=== PATIENT | male | born 1970 | race Caucasian/White ===

== ENCOUNTER 2024-07-14 05:18 | Emergency (ER) | payer SELFPAY ==
[2024-07-14 05:25] VITALS: BP 191/104; PULSE 106; RESP 20; TEMP 36.9; O2SAT 96; BMI 32.7
[2024-07-14 05:32] VITALS: BP 191/104; PULSE 106; RESP 20; O2SAT 96
--- NOTE | 2024-07-14 05:42 | CTR_ITS ---
PROCEDURE INFORMATION: Exam: CT Abdomen And Pelvis With Contrast Exam date and time: 07/14/2024 6:00 AM Age: 54 years old Clinical indication: Localized; Left lower quadrant (llq); Left sided abdominal pain; Additional info: Abd pain TECHNIQUE: Imaging protocol: Computed tomography of the abdomen and pelvis with contrast. Radiation optimization: All CT scans at this facility use at least one of these dose optimization techniques: automated exposure control; mA and/or kV adjustment per patient size (includes targeted exams where dose is matched to clinical indication); or iterative reconstruction. Contrast material: OMNI 350; Contrast volume: 100 ml; Contrast route: INTRAVENOUS (IV); COMPARISON: No relevant prior studies available. RADIATION DOSE METRICS: Total DLP (mGy-cm): 717.8 FINDINGS: Lungs: The lung bases are clear. Heart: Heart is normal in size. There is extensive calcified coronary artery disease. No pericardial effusion. Liver: Hepatic steatosis. The liver is enlarged and measures about 19.4 cm in craniocaudal dimension. No focal liver lesion is identified. Gallbladder and biliary ducts: The gallbladder is unremarkable with no calcified stones visualized and no strandy inflammatory changes surrounding the gallbladder. Pancreas: The pancreas is normal in appearance. No evidence of pancreatic ductal dilatation. Spleen: The spleen is normal in appearance. Adrenal glands: The adrenal glands are normal in appearance. Kidneys and ureters: There is a horseshoe kidney. No evidence of hydronephrosis on either side. There are multiple low-density lesions throughout both renal moieties representing small simple cysts. The largest is in the upper pole on the right measuring about 1.5 cm. No nephroureteral calculi appreciated. Stomach and bowel: The small bowel loops are not thickened and are nondilated. There is colonic diverticulosis but no evidence of diverticulitis. Appendix: The appendix is normal in appearance. No evidence of appendicitis. Intraperitoneal space: Unremarkable. No free air. No significant fluid collection. Vasculature: Unremarkable. No abdominal aortic aneurysm. Lymph nodes: Unremarkable. No enlarged lymph nodes. Urinary bladder: The urinary bladder is normal in appearance. Reproductive: Unremarkable as visualized. Bones/joints: There are multilevel chronic degenerative changes throughout the visualized spine and both hips. No acute osseous abnormality identified. Soft tissues: Small fat containing periumbilical hernia. CT/CT abdomen pelvis w con* [id number]: 1. No CT evidence of acute intra-abdominal pathology. 2. Horseshoe kidney with multiple simple cysts but no evidence of hydronephrosis or nephroureteral calculi. 3. Colonic diverticulosis but no evidence of diverticulitis. 4. Hepatic steatosis and mild hepatomegaly. 5. Extensive calcified coronary artery disease. COMMENTS: Consistent with the [employer]'s Incidental Findings Committee white paper (J Am [employer]iol 2018): Any incidental renal lesion less than 1 cm or classified as too small to characterize, or any incidental cystic renal lesion characterized as simple-appearing, is likely benign. No follow-up imaging is recommended for these lesions per consensus recommendations based on imaging criteria.
--- NOTE | 2024-07-14 05:44 | ED_ITS ---
HPI - Abdominal Pain 2 General: Chief Complaint: Abdominal Pain Stated Complaint: ABD Pain Time Seen by Provider: 07/14/24 05:42 Source: patient Mode of arrival: ambulatory Limitations: no limitations History of Present Illness: 54-year-old male states been having left -sided lower abdominal pain over the last week. He states that he is been having constipation he has not had a bowel movement in over 5 days states pain sharp in nature rates it a 6 out of 10 denies any vomiting denies any fever. Associated Symptoms: Denies chills, diarrhea, dysuria, fever(s), nausea and vomiting Related Data Allergies Allergy/AdvReac Type Severity Reaction Status Date / Time No Known Allergies Allergy Verified 07/14/24 05:32 Review of Systems 2 Const: Denies: fever(s), chills, body aches or change in appetite ENMT: Denies: throat pain or dental pain Card: Denies: chest pain Resp: Denies: dyspnea GI: Reports: abdominal pain; Denies: nausea, vomiting or diarrhea : Denies: dysuria Musc: Denies: neck pain or back pain Skin/Breast: Denies: rash Neuro: Denies: headache(s) Physical Exam 2 Const: COMMON NORMALS: no acute distress, patient oriented x3 and healthy appearing HENMT: COMMON NORMALS: normocephalic and atraumatic HEAD & SCALP: n ormocephalic and atraumatic Eye: COMMON NORMALS: conjunctivae normal CONJUNCTIVA: Yes conjunctivae normal Neck/C-Spine: COMMON NORMALS: full ROM and supple Chest: COMMONS NORMALS: normal inspection of the chest Resp: COMMON NORMALS: normal respiratory effort Cardio: COMMON NORMALS: regular rate RATE: regular rate GI: COMMON NORMALS: Normal to inspection, nondistended, normoactive bowel sounds present, Soft to palpation, non-tender and no masses PALPATION: Yes Soft to palpation Extremity: COMMON NORMALS: normal to inspection and full ROM Neuro: COMMON NORMALS: patient oriented x3, moves all extremities and no focal motor deficits Psych: COMMON NORMALS: mental status grossly normal, Normal thought process present and cooperative THOUGHT PROCESS: Normal thought process present Skin: COMMON NORMALS: no rashes or lesions noted and no wounds GENERAL SKIN EXAM: no rashes or lesions noted Course 2 Vital Signs: Vital signs: Vital Signs Temperature 98.5 F 07/14/24 05:25 Pulse Rate 104 H 07/14/24 06:02 Respiratory Rate 20 H 07/14/24 05:32 Blood Pressure 165/101 07/14/24 06:02 Pulse Oximetry 98 07/14/24 06:02 Oxygen Delivery Me thod Room Air 07/14/24 06:02 MDM - Abdominal Pain Medical Decision Making Patient presents here with abdominal pain CT scan blood work here are normal he is well-appearing here he stable for discharge follow-up PCP return if worsening. Medical Records I reviewed the patient's medical records. Lab Data I reviewed the patient's lab results. 07/14/24 05:38 07/14/24 05:38 Labs/Radiology: Radiology Impressions Abdomen/Pelvis CT 07/14/24 05:42 IMPRESSION: 1. No CT evidence of acute intra-abdominal pathology. 2. Horseshoe kidney with multiple simple cysts but no evidence of hydronephrosis or nephroureteral calculi. 3. Colonic diverticulosis but no evidence of diverticulitis. 4. Hepatic steatosis and mild hepatomegaly. 5. Extensive calcified coronary artery disease. COMMENTS: Consistent with the [employer]'s Incidental Findings Committee white paper (J Am [employer]iol 2018): Any incidental renal lesion less than 1 cm or classified as too small to characterize, or any incidental cystic renal lesion characterized as simple-appearing, is likely benign. No follow-up imaging is recommended for these lesions per consensus recommendations based on imaging criteria. Laboratory Results WBC 7.83 10^3/uL (3.29-11.43) 07/14/24 05:38 RBC 4.42 10^6/uL (3.85-5.65) 07/14/24 05:38 Hgb 8.30 g/dL (11.27-16.99) L 07/14/24 05:38 Hct 32.2 % (37-53) L 07/14/24 05:38 MCV 72.9 fl (82-101) L 07/14/24 05:38 MCH 18.8 pg (27-33) L 07/14/24 05:38 MCHC 25.8 g/dL (30-55) L 07/14/24 05:38 RDW 18.6 % (12.1-15.1) H 07/14/24 05:38 Plt Count 430 10^3/cmm (157-399) H 07/14/24 05:38 MPV 9.6 fL (7.4-10.4) 07/14/24 05:38 Neut % (Auto) 56.2 % 07/14/24 05:38 Lymph % (Auto) 26.8 % 07/14/24 05:38 Louisa % (Auto) 9.6 % 07/14/24 05:38 Eos % (Auto) 6.1 % 07/14/24 05:38 Baso % (Auto) 1.0 % 07/14/24 05:38 Neut # (Auto) 4.40 10^3/uL (1.8-7.7) 07/14/24 05:38 Lymph # (Auto) 2.1 10^3/uL (0.8-4.8) 07/14/24 05:38 Louisa # (Auto) 0.8 10^3/uL (0.2-0.9) 07/14/24 05:38 Eos # (Auto) 0.5 10^3/uL (0.0-0.8) 07/14/24 05:38 Baso # (Auto) 0.1 10^3/uL (0.0-0.1) 07/14/24 05:38 Nucleated RBC % (auto) 0 % 07/14/24 05:38 Nucleated RBCs # 0.0 /100WBC 07/14/24 05:38 Sodium 140 mmol/L (136-145) 07/14/24 05:38 Potassium 3.5 mmol/L (3.5-5.1) 07/14/24 05:38 Chloride 103 mmol/L (98-107) 07/14/24 05:38 Carbon Dioxide 24 mmol/L (22-29) 07/14/24 05:38 Anion Gap 16.5 (5-19) 07/14/24 05:38 BUN 7 mg/dL (6-20) 07/14/24 05:38 Creatinine 1.0 mg/dL (0.7-1.2) 07/14/24 05:38 GFR Calculation 77.6 mL/min (90-130) L 07/14/24 05:38 Glucose 126 mg/dL (65-115) H 07/14/24 05:38 Calculated Osmolality 290 mOsm/kg (285-295) 07/14/24 05:38 Calcium 8.6 mg/dL (8.5-10.5) 07/14/24 05:38 Total Bilirubin 0.2 mg/dL (0.15-1.2) 07/14/24 05:38 AST 20 U/L (0-40) 07/14/24 05:38 ALT 16 U/L (0-41) 07/14/24 05:38 Alkaline Phosphatase 17 U/L (40-130) L 07/14/24 05:38 Total Protein 7.4 g/dL (6.6-8.7) 07/14/24 05:38 Albumin 4.3 g/dL (3.5-5.2) 07/14/24 05:38 Globulin 3.1 g/dL (1.3-4.6) 07/14/24 05:38 Lipase 50 U/L (13-60) 07/14/24 05:38 Urine Color Yellow (Yellow) 07/14/24 05:35 Urine Appearance Clear (CLEAR) 07/14/24 05:35 Urine pH 7.5 (5-7) 07/14/24 05:35 Ur Specific [place] 1.004 (1.005-1.030) L 07/14/24 05:35 Urine Protein Negative (Negative) 07/14/24 05:35 Urine Glucose (UA) Negative (Normal) 07/14/24 05:35 Urine Ketones Negative (Negative) 07/14/24 05:35 Urine Blood Negative (Negative) 07/14/24 05:35 Urine Nitrate Negative (Negative) 07/14/24 05:35 Urine Bilirubin Negative (Negative) 07/14/24 05:35 Urine Urobilinogen 1.0 mg/dL (Negative) 07/14/24 05:35 Ur Leukocyte Esterase Negative (Negative) 07/14/24 05:35 Urine RBC 0-2 /hpf (0-2) 07/14/24 05:35 Urine WBC 0-5 /hpf (0-5) 07/14/24 05:35 Ur Squamous Epith Cells 0-5 /hpf (0-5) 07/14/24 05:35 Amorphous Sediment Not Reportable 07/14/24 05:35 Urine Bacteria None seen /hpf (NONE) 07/14/24 05:35 Hyaline Casts 0-4 /lpf H 07/14/24 05:35 All radiology interpretation(s) finalized by discharge Discharge Plan Discharge Patient Disposition: Home Clinical Impression: Abdominal pain Condition: Stable Discharge Orders: Discharge ED (Routine); Ordered 07/14/24 Ordered By: Gladis Valladares Discharge Diet: Advance as tolerated Discharge Activity: Resume usual activity Patient Instructions: Abdominal Pain (ED) Print Language: Serbian Coding Level of Care Code ED Loan Documents Closer for Ramin Rios
[2024-07-14] MEDS: lactulose oral liq 20 gm/30 mL UDC 30 GM PO (05:47)
[2024-07-14 05:50] LABS: Basophils # 0.1 10^3/uL (0.0-0.1); Eosinophils # 0.5 10^3/uL (0.0-0.8); Eosinophils % 6.1 %; Hematocrit 32.2 % (37-53); Lymphocytes # 2.1 10^3/uL (0.8-4.8); Lymphocytes % 26.8 %; Mean Corpuscular HGB Conc 25.8 g/dL (30-55); Mean Corpuscular Hemoglobin 18.8 pg (27-33); Mean Corpuscular Volume 72.9 fl (82-101); Mean Platelet Volume 9.6 fL (7.4-10.4); Monocytes # 0.8 10^3/uL (0.2-0.9); Monocytes % 9.6 %; Neutrophils % 56.2 %; Nucleated Red Blood Cells % 0 %; Platelet Count 430 10^3/cmm (157-399); Red Blood Count 4.42 10^6/uL (3.85-5.65); Red Cell Distribution Width 18.6 % (12.1-15.1); White Blood Count 7.83 10^3/uL (3.29-11.43)
[2024-07-14 05:56] LABS: Bilirubin Urine Negative (Negative); Blood Urine Negative (Negative); Glucose Urine UA Negative (Normal); Ketones Urine Negative (Negative); Leukocyte Esterase Urine Negative (Negative); Nitrate Urine Negative (Negative); Protein Urine Negative (Negative); Specific Gravity, Urine 1.004 (1.005-1.030); Urine Appearance Clear (CLEAR); Urine Color Yellow (Yellow); pH Urine 7.5 (5-7)
[2024-07-14 06:01] LABS: Add Urine Microscopic? YES; Bacteria Urine None Seen /hpf; Hyaline Casts Urine 0-4 /lpf; RBC Urine 0-2 /hpf (0-2); Squamous Epithelial Cell Urine 0-5 /hpf (0-5); WBC Urine 0-5 /hpf (0-5)
[2024-07-14 06:02] VITALS: BP 165/101; PULSE 104; O2SAT 98
[2024-07-14 06:03] LABS: Alanine Aminotransferase 16 U/L (0-41); Albumin Level 4.3 g/dL (3.5-5.2); Alkaline Phosphatase 17 U/L (40-130); Anion Gap 16.5 (5-19); Aspartate Amino Transferase 20 U/L (0-40); Blood Urea Nitrogen 7 mg/dL (6-20); Calcium 8.6 mg/dL (8.5-10.5); Carbon Dioxide 24 mmol/L (22-29); Chloride 103 mmol/L (98-107); Globulin 3.1 g/dL (1.3-4.6); Glomerular Filtration Rate 77.6 mL/min (90-130); Glucose 126 mg/dL (65-115); Lipase 50 U/L (13-60); Osmolality Calculated 290 mOsm/kg (285-295); Potassium 3.5 mmol/L (3.5-5.1); Sodium 140 mmol/L (136-145); Total Bilirubin 0.2 mg/dL (0.15-1.2); Total Protein 7.4 g/dL (6.6-8.7)
[2024-07-14] MEDS: iohexol 350 mg/mL 500 mL Btl (per mL) IV ×2 (06:03→06:05)
[2024-07-14 06:46] VITALS: BP 158/96; PULSE 96; O2SAT 97
== END 2024-07-14 06:47 | disposition home or self-care (01) ==
PROVIDERS: Emergency Provider Emergency Medicine
DX: R10.9 Unspecified abdominal pain (principal)
CPT/HCPCS: 36415; 74177; 80053; 81001; 83690; 85025; 99285; J9999